=== PATIENT | male | born 1940 | race Caucasian/White ===

== ENCOUNTER 2016-07-04 17:47 | Emergency (ER) | payer MEDICARE, OTHER ==
[2016-07-04 18:28] VITALS: BP 150/94
--- NOTE | 2016-07-04 19:00 | EDM.PDOC ---
[id number] 4d ABD PAIN LEFT SIDE Time Seen by Provider: 07/04/16 18:30 Source: Reports: Patient, Family History Limitations: Reports: No limitations - History of Present Illness INITIAL COMMENTS - FREE TEXT/NARRATIVE: 76-year-old male who has had a left lower quadrant abdominal pain that has worsened over the past day. No fevers or chills. He has an ongoing problem with thrombocytopenia and has had stents placed in the femoral arteries and the left ureter over the past few years. He took some Tylenol earlier this afternoon and the pain is feeling better but he wanted it checked. No nausea or vomiting. Timing/Duration: Reports: Hour(s): (Over the past 12-24 hours) Location: LLQ Quality: Reports: cramping Severity: mild Associated Symptoms: Reports: other (Mild intermittent dysuria). Denies: chest pain - Related Data Allergies/ADRs: Allergies Allergy/AdvReac Type Severity Reaction Status Date / Time No Known Allergies Allergy Verified 07/04/16 18:17 Home Meds: Home Meds Atenolol [Tenormin] 25 mg PO DAILY 01/01/13 [History] Lisinopril [Lisinopril] 10 mg PO DAILY 01/01/13 [History] Multivitamin with Minerals [Multiple Vitamin] 1 tab PO DAILY 02/03/13 [History] Simvastatin [Simvastatin] 1 tab PO DAILY 10/15/14 [History] Hydrochlorothiazide 07/04/16 [History] Omeprazole [Omeprazole] 07/04/16 [History] Tamsulosin [Flomax] 07/04/16 [History] Past Medical History Cardiovascular History: Reports: High cholesterol, Hypertension, Other (see below) Other Cardiovascular History: aneurysm Other Genitourinary History: cyst on kidney Musculoskeletal History: Reports: Osteoarthritis Neurological History: Reports: Vertigo - Past Surgical History Cardiovascular Surgical History: Reports: AAA repair Social & Family History - Tobacco Use Smoking Status *Q: Never Smoker Years of Tobacco use: 40 Packs/Tins Daily: 0.5 Second Hand Smoke Exposure: Yes - Alcohol Use Days Per Week of Alcohol Use: 2 Number of Drinks Per Day: 4 Total Drinks Per Week: 8 - Recreational Drug Use Recreational Drug Use: No ED ROS GENERAL - Review of Systems Review Of Systems: See Below Constitutional: Denies: fever, chills, malaise HEENT: Reports: No symptoms Respiratory: Denies: Shortness of Breath Cardiovascular: Denies: Chest pain GI/Abdominal: Reports: Abdominal pain. Denies: Nausea, Vomiting : Reports: dysuria (Intermittent) Musculoskeletal: Reports: other (Some pain radiating into the left lateral hip) Skin: Reports: no symptoms Neurological: Reports: No Symptoms Psychiatric: Reports: No symptoms Hematologic/Lymphatic: Reports: other (Been followed for thrombocytopenia) ED EXAM, GI/ABD - Physical Exam Exam: See Below Exam Limited By: No limitations General Appearance: alert, no apparent distress Eyes: bilateral: normal appearance (No jaundice) Respiratory/Chest: no respiratory distress, lungs clear Cardiovascular: regular rate, rhythm GI/Abdominal: soft, tenderness (Patient reacts with tenderness to palpation over the left lower quadrant, small amount of guarding, no significant rebound) Extremities: other (No external palpation tenderness on the lateral hip but some increased pain with flexion of the hip) Course - Vital Signs Last Recorded V/S: Last Vital Signs Temp 97.7 F 07/04/16 18:27 Pulse 80 07/04/16 18:27 Resp 14 07/04/16 18:27 BP 150/94 H 07/04/16 18:27 Pulse Ox 98 07/04/16 18:27 - Orders/Labs/Meds Orders: Active Orders 24 hr Category Date Time Status Abdomen Pelvis wo Cont [CT] Stat Exams 07/04/16 18:43 Taken Labs: Laboratory Tests 07/04/16 07/04/16 07/04/16 Range/Units 18:15 18:45 18:45 WBC 7.6 (4.5-11.0) K/uL RBC 3.73 L (4.30-5.90) M/uL Hgb 9.7 L D (12.0-15.0) g/dL Hct 31.2 L (40.0-54.0) % MCV 84 (80-98) fL MCH 26 L (27-31) pg MCHC 31 L (32-36) % Plt Count 95 L (150-400) K/uL Neut % (Auto) 61 (36-66) % Lymph % (Auto) 23 L (24-44) % [place] % (Auto) 12 H (2-6) % Eos % (Auto) 5 H (2-4) % Baso % (Auto) 0 (0-1) % Sodium 142 (140-148) mmol/L Potassium 4.3 (3.6-5.2) mmol/L Chloride 107 (100-108) mmol/L Carbon Dioxide 25 (21-32) mmol/L Anion Gap 10.1 (5.0-14.0) mmol/L BUN 33 H D (7-18) mg/dL Creatinine 1.4 H (0.8-1.3) mg/dL Est Cr Clr Drug Dosing TNP Estimated GFR (MDRD) 49 L (>60) Glucose 120 H (74-106) mg/dL Calcium 8.5 (8.5-10.1) mg/dL Urine Color Yellow Urine Appearance Slightly cloudy Urine pH 5.0 (4.5-8.0) Ur Specific [place] 1.010 (1.008-1.030) Urine Protein Trace (NEGATIVE) mg/dL Urine Glucose (UA) Normal (NEGATIVE) mg/dL Urine Ketones Negative (NEGATIVE) mg/dL Urine Occult Blood Large (NEGATIVE) Urine Nitrite Negative (NEGAITVE) Urine Bilirubin Negative (NEGATIVE) Urine Urobilinogen Normal (NORMAL) mg/dL Ur Leukocyte Esterase Large (NEGATIVE) Urine RBC 40-50 H (0-5) Urine WBC 5-10 H (0-5) Ur Epithelial Cells Rare Amorphous Sediment Not seen Urine Bacteria Not seen Urine Mucus Not seen - Re-Assessments/Exams Free Text/Narrative Re-Assessment/Exam: 07/04/16 19:15 The UA, CBC and BMP were obtained. An abdominal and pelvic CT without contrast was also obtained 07/04/16 20:20 UA showed 20-50 RBCs which would be typical post ureteral stent. Platelets were 95,000, hemoglobin 9.7 which is an improvement over last level of 7.9. The abdominal and pelvic CT was positive for a source loculated mass as well as a mass just anterior to the psoas muscle and the retroperitoneal space. Possibilities or abscess or hematoma, hematoma is much are likely considering the patient's history and medical presentation. This was discussed with urology , internal medicine and the patient and his and urgent hospitalization is not necessary at this time. He needs recheck of the hemoglobin and CT scan in the next several days if stable or improving, at any time worsening he should be reassessed immediately. All copies of the lab and x-ray were given to the patient and he will go to [place] or return to the ER here in [place] if he feels his worsening. He was given 10 hydrocodone for extra pain control. Departure - Departure Time of Disposition: 20:36 Disposition: Home, Self-Care 01 Condition: good Clinical Impression: Nontraumatic psoas hematoma Abdominal pain Qualifiers: Abdominal location: left lower quadrant Qualified Code(s): R10.32 - Left lower quadrant pain Instructions: Hematoma Referrals: Brenda Groves PA [Primary Care Provider] - Forms: ED Department Discharge Care Plan Goals: Continue with your current medications, add hydrocodone for pain control if needed. Rest and avoid significant physical activity until improving. You need a recheck hemoglobin and CT scan in the next 3-5 days if not worsening, you need urgent recheck if you feel you are worsening. - My Orders Last 24 Hours: My Active Orders 07/04/16 18:43 Abdomen Pelvis wo Cont [CT] Stat - Assessment/Plan Last 24 Hours: My Active Orders 07/04/16 18:43 Abdomen Pelvis wo Cont [CT] Stat
== END 2016-07-04 20:36 | disposition home or self-care (01) ==
LOC: JP.ED 17:47
DX: M79.81 Nontraumatic hematoma of soft tissue (principal); R10.32 Left lower quadrant pain; I10 Essential (primary) hypertension; E78.00 Pure hypercholesterolemia, unspecified; Z98.890 Other specified postprocedural states; Z79.899 Other long term (current) drug therapy
CPT/HCPCS: 36415; 74176; 80048; 81001; 85025; 99283; 99284-25

== ENCOUNTER 2016-08-29 22:13 | Emergency (ER) | payer MEDICARE, OTHER ==
[2016-08-29 22:27] VITALS: BP 127/86
--- NOTE | 2016-08-29 23:26 | EDM.PDOC ---
[id number]: BLOOD IN URINE Time Seen by Provider: 08/29/16 22:50 Source of Information: Reports: Patient, RN Notes Reviewed, Significant Other ( Friend) History Limitations: Reports: No Limitations - History of Present Illness INITIAL COMMENTS - FREE TEXT/NARRATIVE: 76-year-old gentleman with left ureteral stent placed a month ago, for apparent ureteral narrowing Was seen in emergency July 04 and at that time had left lower quadrant pain, a masslike area was seen on the CT scan, however he's had soft tissue mass there previously and this apparently was resolving. Noticed blood in the urine E. today. Been very active lately and today he mowed 2 large lawn some with the lawnmower did some dancing and had 4 beers at [employer]. No flank or side pain No nausea or vomiting No fever No dysuria - Related Data Allergies Allergy/AdvReac Type Severity Reaction Status Date / Time No Known Allergies Allergy Verified 07/04/16 18:17 Home Meds: Home Meds Atenolol [Tenormin] 25 mg PO DAILY 01/01/13 [History] Lisinopril [Lisinopril] 10 mg PO DAILY 01/01/13 [History] Multivitamin with Minerals [Multiple Vitamin] 1 tab PO DAILY 02/03/13 [History] Simvastatin [Simvastatin] 1 tab PO DAILY 10/15/14 [History] Hydrochlorothiazide 25 mg PO BID 07/04/16 [History] Omeprazole [Omeprazole] 20 mg PO BID 07/04/16 [History] Tamsulosin [Flomax] 0.4 mg PO BEDTIME 07/04/16 [History] Sulfamethoxazole/Trimethoprim [Bactrim Ds Tablet] 1 each PO BID #20 tablet 08/29 [Rx] Past Medical History Cardiovascular History: Reports: High Cholesterol, Hypertension Other Cardiovascular History: aneurysm Genitourinary History: Reports: Other (See Below) Other Genitourinary History: cyst on kidney Musculoskeletal History: Reports: Osteoarthritis Neurological History: Reports: Other (See Below) Other Neuro History: had vertigo when platelets were low Hematologic History: Reports: Other (See Below) Other Hematologic History: thrombocytopenia - Infectious Disease History Infectious Disease History: Reports: None - Past Surgical History Head Surgeries/Procedures: Reports: None Cardiovascular Surgical History: Reports: Other (See Below) Other Cardiovascular Surgeries/Procedures: 2 Aneurysms repaird Male Surgical History: Reports: Other (See Below) Other Male Surgeries/Procedures: stent placed in June at [facility] Neurological Surgical History: Reports: None Musculoskeletal Surgical History: Reports: None Dermatological Surgical History: Reports: None Social & Family History - Family History Family Medical History: Noncontributory - Tobacco Use Smoking Status *Q: Former Smoker Years of Tobacco use: 50 Packs/Tins Daily: 1 Used Tobacco, but Quit: Yes Month Tobacco Last Used: may. Second Hand Smoke Exposure: No - Caffeine Use Caffeine Use: Reports: Coffee, Soda, Tea - Alcohol Use Days Per Week of Alcohol Use: 1 Number of Drinks Per Day: 3 Total Drinks Per Week: 3 Date of Last Drink: 08/29/16 Time of Last Drink: 21:00 - Recreational Drug Use Recreational Drug Use: No ED ROS GENERAL - Review of Systems Review Of Systems: ROS reveals no pertinent complaints other than HPI. Constitutional: Reports: No Symptoms GI/Abdominal: Denies: Abdominal Pain, Diarrhea, Decreased Appetite, Nausea, Vomiting : Reports: Hematuria. Denies: Dysuria, Flank Pain, Frequency ED EXAM, RENAL/ - Physical Exam Exam: See Below Exam Limited By: No Limitations General Appearance: Alert, No Apparent Distress, Other (Healthy-appearing male with normal vital signs and in no distress) Respiratory/Chest: No Respiratory Distress, No Accessory Muscle Use Cardiovascular: Normal Peripheral Pulses, Regular Rate, Rhythm GI/Abdominal: Normal Bowel Sounds, Soft, Non-Tender, No Organomegaly, No Distention, No Mass (Male) Exam: No Hernia, Normal Inspection Neurological: Alert, Oriented, Normal Cognition, No Motor/Sensory Deficits Lymphatic: No Adenopathy Course - Vital Signs Text/Narrative:: 76-year-old gentleman with ureteral stent, presenting with hematuria No abdominal pain no fever no dysuria Urinalysis shows 30-40 red cells and 10-20 white cells per high-power field, no bacteria seen Urine culture ordered Ilana SALAS twice a day for 10 days Followup with urology, call the office tomorrow Get rechecked promptly if fever, vomiting or severe pain Last Recorded V/S: Last Vital Signs Temp 35.9 C 08/29/16 22:26 Pulse 74 08/29/16 22:26 Resp 16 08/29/16 22:26 BP 127/86 08/29/16 22:26 Pulse Ox 98 08/29/16 22:26 - Orders/Labs/Meds Orders: Active Orders 24 hr Category Date Time Status CULTURE URINE [RM] Stat Lab 08/29/16 23:28 Received Labs: Laboratory Tests 08/29/16 Range/Units 22:58 Urine Color Red Urine Appearance Slightly cloudy Urine pH 6.0 (4.5-8.0) Ur Specific [place] 1.010 (1.008-1.030) Urine Protein 500 H (NEGATIVE) mg/dL Urine Glucose (UA) Normal (NEGATIVE) mg/dL Urine Ketones Negative (NEGATIVE) mg/dL Urine Occult Blood Large (NEGATIVE) Urine Nitrite Negative (NEGAITVE) Urine Bilirubin Negative (NEGATIVE) Urine Urobilinogen Normal (NORMAL) mg/dL Ur Leukocyte Esterase Negative (NEGATIVE) Urine RBC 30-40 H (0-5) Urine WBC 10-20 H (0-5) Ur Epithelial Cells Not seen Amorphous Sediment Not seen Urine Bacteria Not seen Urine Mucus Not seen - Re-Assessments/Exams Free Text/Narrative Re-Assessment/Exam: 08/29/16 23:40 36-year-old male with hematuria, known left ureteral stent, no symptoms. Urinalysis does show significant pyuria and hematuria but no bacteria Urine culture pending Because of significant pyuria and presence of stents, will recommend antibiotic Followup with urology Departure - Departure Time of Disposition: 23:24 Disposition: Home, Self-Care 01 Condition: good Clinical Impression: Hematuria, History of ureter stent - Discharge Information Prescriptions: Sulfamethoxazole/Trimethoprim [Bactrim Ds Tablet] 1 each PO BID #20 tablet Instructions: Hematuria, Adult Referrals: Brenda Groves PA [Primary Care Provider] - Forms: ED Department Discharge Additional Instructions: You're being treated for possible urinary tract infection Call your urologist tomorrow to set up an appointment for next week Return to emergency if you have severe pain, repeated vomiting, high fever, weakness or fainting, or painful urination - My Orders Last 24 Hours: My Active Orders 08/29/16 23:28 CULTURE URINE [RM] Stat - Assessment/Plan Last 24 Hours: My Active Orders 08/29/16 23:28 CULTURE URINE [RM] Stat
== END 2016-08-29 23:41 | disposition home or self-care (01) ==
LOC: JP.ED 22:13
DX: R31.9 Hematuria, unspecified (principal); I10 Essential (primary) hypertension; M19.90 Unspecified osteoarthritis, unspecified site; E78.00 Pure hypercholesterolemia, unspecified; Z79.899 Other long term (current) drug therapy; Z87.891 Personal history of nicotine dependence
CPT/HCPCS: 81001; 87086; 99283; 99284

== ENCOUNTER 2017-02-18 09:09 | Day surgery (SDC) | payer MEDICARE, OTHER ==
[~2017-02-18 09:09] MED LIST: Bupivacaine 0.5% 50 ML MDV ONE; Lidocaine 1% with EPINEPHrine 1:100,000 50 ML MDV ONE
[2017-02-18] MEDS ORDERED: Propofol 200 MG/20 ML SDV ONE ×2 (09:27→10:35)
[2017-02-18] MEDS ORDERED: fentaNYL 100 MCG/2 ML SDV ONE (09:27)
[2017-02-18] MEDS ORDERED: Dextrose 5%-Lactated Ringers 1,000 ML IV SCH (10:00)
[2017-02-18] MEDS ORDERED: ceFAZolin 2 GM in Premix Bag 1 BAG IV ONE (10:45)
[2017-02-18] MEDS ORDERED: ceFAZolin 2 GM in Sodium Chloride 0.9% 50 ML IV ONE (10:45)
[2017-02-18] MEDS ORDERED: Lactated Ringers 1,000 ML ONE (11:46)
[2017-02-18 13:41] VITALS: BP 170/73
--- NOTE | 2017-02-19 08:47 | OR ---
DATE OF PROCEDURE: 02/18/2017 PREOPERATIVE DIAGNOSIS: Reducible left inguinal hernia. POSTOPERATIVE DIAGNOSIS: Reducible indirect left inguinal hernia. PROCEDURE: Repair of reducible indirect left inguinal hernia with a large PerFix mesh plug and patch. SURGEON: Jacoby Bishop MD. ANESTHESIA: IV anesthesia with monitored anesthesia care. INDICATION: This 77-year-old white male was referred for treatment of a reducible left inguinal hernia. He denies predisposing factors for hernia formation, other than being fairly physical. He does lot of wood splitting. I counseled him for repair of his reducible left inguinal hernia with a mesh plug and patch, including risks and alternatives, and he gave us informed consent to proceed. DESCRIPTION OF PROCEDURE: The patient was placed supine on the operating room table. IV anesthesia was administered by the Anesthesia Service. His lower abdomen, groin, and genitalia were prepped and draped in the usual sterile fashion. Time -out was held. Lidocaine 1% with epinephrine in a 50:50 mix with 0.5% Marcaine was infiltrated about the left groin. A left groin incision was made 2 cm superior and medial to the inguinal ligament. This was carried deep using Bovie cautery to the external oblique. The external oblique was opened parallel to the course of its fibers from the internal to the external ring. The spermatic cord was mobilized, and a Carroll drain placed above it. The floor appeared to be intact. The cremasteric fibers were longitudinally to reveal an indirect hernia sac. The ilioinguinal nerve was divided. The indirect sac was then dissected free back to the peritoneal reflection and reduced back into the abdominal cavity. The fascial defect was measured to about a large plug. A large PerFix mesh plug and patch manufactured by [employer] was obtained. The plug was passed down through the defect underneath the fascia and anchored to the underside of the fascia, approximating the internal leaves to the associated fascia with horizontal mattress stitches of 2-0 Vicryl. The onlay patch was cut to appropriate length and placed over the inguinal floor , and it was anchored to itself around the spermatic cord with 2-0 Vicryl suture. It appeared to lie in there quite nicely. The external oblique was closed with a running stitch of 3- 0 Vicryl. Interrupted 3-0 Vicryl stitches were placed to approximate the Blayne's fascia. 4-0 Vicryl using a subcuticular stitch was placed to approximate the skin. Dermabond was applied. The patient tolerated the procedure well and was brought to recovery room in good condition. Jacoby Bishop MD /[id number] MTDD
== END 2017-02-18 13:30 | disposition home or self-care (01) ==
LOC: JP.SDS 09:09
PROVIDERS: ATTEND Surgery
DX: K40.90 Unilateral inguinal hernia, without obstruction or gangrene, not specified as recurrent (principal); I12.9 Hypertensive chronic kidney disease with stage 1 through stage 4 chronic kidney disease, or unspecified chronic kidney disease; N18.9 Chronic kidney disease, unspecified; F17.210 Nicotine dependence, cigarettes, uncomplicated
CPT/HCPCS: 36415; 49505; 85027; J0690; J2704; J3010; J7042; J7050; J7120; C1781

== ENCOUNTER 2018-10-21 09:00 | Emergency (ER) | payer MEDICARE, BC ==
--- NOTE | 2018-10-21 10:07 | EDM.PDOC ---
ED HPI GENERAL MEDICAL PROBLEM - General Chief Complaint: Gastrointestinal Problem Stated Complaint: SURGERY COMPLICATIONS Time Seen by Provider: 10/21/18 09:45 Source of Information: Reports: Patient, Family, Old Records, RN History Limitations: Reports: No Limitations - History of Present Illness INITIAL COMMENTS - FREE TEXT/NARRATIVE: 78 yo male here with anorexia and at least 5 lb weight loss over the past couple of weeks. Feels gaggy when he tries to eat. No change in bowels. No fever , SOB, or chest pains. Has nocturia x one. Sleeping OK. Had surgery at [facility] with discharge about 2 weeks ago for infected mesh in his ilac artery stents placed in ' originally period. 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 Was seen in the clinic once since his hospital discharge and they just wanted him to report back if he didn't improve. Yesterday when he told the clinic he was not improving he was told to come to the ER. - Related Data Allergies Allergy/AdvReac Type Severity Reaction Status Date / Time No Known Allergies Allergy Verified 10/21/18 09:26 Home Meds: Home Meds Atenolol [Tenormin] 25 mg PO DAILY 01/01/13 [History] Lisinopril 10 mg PO DAILY 01/01/13 [History] Multivitamin with Minerals [Multiple Vitamin] 1 tab PO DAILY 02/03/13 [History] Omeprazole 20 mg PO BID 07/04/16 [History] Tamsulosin [Flomax] 0.4 mg PO BEDTIME 07/04/16 [History] Ascorbic Acid [Vitamin C] 500 mg PO DAILY 02/14/17 [History] Aspirin [Ecotrin EC] 325 mg PO DAILY 10/21/18 [History] Cholecalciferol (Vitamin D3) [Vitamin D3] 1,000 unit PO DAILY 10/21/18 [History] Doxycycline [Vibramycin] 100 mg PO BID 10/21/18 [History] Hydroxychloroquine [Plaquenil] 200 mg PO TID 10/21/18 [History] Sennosides [Senna] 8.6 mg PO DAILY 10/21/18 [History] oxyCODONE HCl [Roxicodone] 5 mg PO Q4HR PRN 10/21/18 [History] Past Medical History HEENT History: Reports: Impaired Vision Cardiovascular History: Reports: High Cholesterol, Hypertension Other Cardiovascular History: aneurysm femoral Respiratory History: Reports: None Gastrointestinal History: Reports: Colon Polyp, GERD Genitourinary History: Reports: Other (See Below) Other Genitourinary History: cyst on kidney Musculoskeletal History: Reports: Arthritis, Fracture, Osteoarthritis Neurological History: Reports: Other (See Below) Other Neuro History: had vertigo when platelets were low Psychiatric History: Reports: None Endocrine/Metabolic History: Reports: None Hematologic History: Reports: Anemia, Other (See Below) Other Hematologic History: thrombocytopenia Immunologic History: Reports: None Oncologic (Cancer) History: Reports: None Dermatologic History: Reports: None - Infectious Disease History Infectious Disease History: Reports: Chicken Pox, Herpes, Measles, Mumps - Past Surgical History Head Surgeries/Procedures: Reports: None HEENT Surgical History: Reports: None Cardiovascular Surgical History: Reports: Other (See Below) Other Cardiovascular Surgeries/Procedures: 2 Aneurysms repaird 2009 Respiratory Surgical History: Reports: None GI Surgical History: Reports: Colonoscopy, EGD, Polypectomy Male Surgical History: Reports: Other (See Below) Other Male Surgeries/Procedures: stent placed in June at [facility] 2016 Endocrine Surgical History: Reports: None Neurological Surgical History: Reports: None Musculoskeletal Surgical History: Reports: Carpal Tunnel Oncologic Surgical History: Reports: None Dermatological Surgical History: Reports: None Social & Family History - Family History Family Medical History: Noncontributory - Tobacco Use Smoking Status *Q: Former Smoker Used Tobacco, but Quit: Yes Month/Year Tobacco Last Used: quit 5 months ago - Caffeine Use Caffeine Use: Reports: Coffee - Recreational Drug Use Recreational Drug Use: No ED ROS GENERAL - Review of Systems Review Of Systems: See Below Constitutional: Reports: Malaise HEENT: Reports: No Symptoms Respiratory: Reports: No Symptoms Cardiovascular: Reports: No Symptoms Endocrine: Reports: No Symptoms GI/Abdominal: Reports: Anorexia, Decreased Appetite. Denies: Abdominal Pain, Black Stool, Bloody Stool, Constipation, Diarrhea, Distension, Hematemesis, Hematochezia, Melena, Nausea, Vomiting : Reports: No Symptoms Musculoskeletal: Reports: No Symptoms Skin: Reports: No Symptoms Neurological: Reports: No Symptoms Psychiatric: Reports: No Symptoms ED EXAM, GI/ABD - Physical Exam Exam: See Below Exam Limited By: No Limitations General Appearance: Alert, WD/WN, No Apparent Distress, Thin Eyes: Bilateral: Normal Appearance, EOMI Ears: Normal External Exam, Hearing Grossly Normal Nose: Normal Inspection, No Blood Throat/Mouth: Normal Inspection, Normal Lips, Normal Oropharynx, Normal Voice, No Airway Compromise Head: Atraumatic, Normocephalic Neck: Normal Inspection Respiratory/Chest: No Respiratory Distress, Lungs Clear, Normal Breath Sounds, No Accessory Muscle Use Cardiovascular: Regular Rate, Rhythm, No Edema GI/Abdominal Exam: Normal Bowel Sounds, Soft, Non-Tender, No Distention, Other ( Large healing midline surgical wound, no redness) Back Exam: Normal Inspection. No: CVA Tenderness (R), CVA Tenderness (L) Extremities: Normal Inspection, Normal Range of Motion, Non-Tender, No Pedal Edema Neurological: Alert, Oriented, CN II-XII Intact, Normal Cognition, No Motor/ Sensory Deficits Psychiatric: Normal Affect, Normal Mood Skin Exam: Warm, Dry, Intact, Normal Color, No Rash Course - Vital Signs Last Recorded V/S: Last Vital Signs Temp 36.1 C 10/21/18 09:22 Pulse 74 10/21/18 10:44 Resp 20 10/21/18 09:22 BP 135/87 10/21/18 10:44 Pulse Ox 88 L 10/21/18 10:44 - Orders/Labs/Meds Labs: Laboratory Tests 10/21/18 10/21/18 10/21/18 Range/Units 10:07 10:08 10:08 WBC 10.4 (4.5-11.0) K/uL RBC 4.65 (4.30-5.90) M/uL Hgb 13.2 (12.0-15.0) g/dL Hct 41.6 (40.0-54.0) % MCV 90 (80-98) fL MCH 28 (27-31) pg MCHC 32 (32-36) % Plt Count 315 (150-400) K/uL Sodium 137 L (140-148) mmol/L Potassium 4.7 (3.6-5.2) mmol/L Chloride 102 (100-108) mmol/L Carbon Dioxide 26 (21-32) mmol/L Anion Gap 13.7 (5.0-14.0) mmol/L BUN 43 H (7-18) mg/dL Creatinine 1.7 H (0.8-1.3) mg/dL Est Cr Clr Drug Dosing 29.58 mL/min Estimated GFR (MDRD) 39 L (>60) Glucose 125 H (74-106) mg/dL Calcium 9.4 (8.5-10.1) mg/dL Total Bilirubin 0.5 D (0.2-1.0) mg/dL AST 32 D (15-37) U/L ALT 40 D (12-78) U/L Alkaline Phosphatase 122 H D (46-116) U/L Troponin I < 0.017 (0.000-0.056) ng/mL C-Reactive Protein 1.02 H (0.0-0.3) mg/dL Total Protein 7.2 (6.4-8.2) g/dL Albumin 3.3 L (3.4-5.0) g/dL Globulin 3.9 H (2.3-3.5) g/dL Albumin/Globulin Ratio 0.9 L (1.2-2.2) TSH, Ultra Sensitive 2.431 (0.358-3.740) uIU/mL Urine Color Urine Appearance Urine pH (4.5-8.0) Ur Specific [place] (1.008-1.030) Urine Protein (NEGATIVE) mg/dL Urine Glucose (UA) (NEGATIVE) mg/dL Urine Ketones (NEGATIVE) mg/dL Urine Occult Blood (NEGATIVE) Urine Nitrite (NEGAITVE) Urine Bilirubin (NEGATIVE) Urine Urobilinogen (NORMAL) mg/dL Ur Leukocyte Esterase (NEGATIVE) Urine RBC (0-5) Urine WBC (0-5) Ur Epithelial Cells Amorphous Sediment Urine Bacteria Urine Mucus 10/21/18 Range/Units 11:16 WBC (4.5-11.0) K/uL RBC (4.30-5.90) M/uL Hgb (12.0-15.0) g/dL Hct (40.0-54.0) % MCV (80-98) fL MCH (27-31) pg MCHC (32-36) % Plt Count (150-400) K/uL Sodium (140-148) mmol/L Potassium (3.6-5.2) mmol/L Chloride (100-108) mmol/L Carbon Dioxide (21-32) mmol/L Anion Gap (5.0-14.0) mmol/L BUN (7-18) mg/dL Creatinine (0.8-1.3) mg/dL Est Cr Clr Drug Dosing mL/min Estimated GFR (MDRD) (>60) Glucose (74-106) mg/dL Calcium (8.5-10.1) mg/dL Total Bilirubin (0.2-1.0) mg/dL AST (15-37) U/L ALT (12-78) U/L Alkaline Phosphatase (46-116) U/L Troponin I (0.000-0.056) ng/mL C-Reactive Protein (0.0-0.3) mg/dL Total Protein (6.4-8.2) g/dL Albumin (3.4-5.0) g/dL Globulin (2.3-3.5) g/dL Albumin/Globulin Ratio (1.2-2.2) TSH, Ultra Sensitive (0.358-3.740) uIU/mL Urine Color Yellow Urine Appearance Slightly cloudy Urine pH 5.0 (4.5-8.0) Ur Specific [place] 1.025 (1.008-1.030) Urine Protein 100 H (NEGATIVE) mg/dL Urine Glucose (UA) Normal (NEGATIVE) mg/dL Urine Ketones Negative (NEGATIVE) mg/dL Urine Occult Blood Large (NEGATIVE) Urine Nitrite Negative (NEGAITVE) Urine Bilirubin Negative (NEGATIVE) Urine Urobilinogen Normal (NORMAL) mg/dL Ur Leukocyte Esterase Large (NEGATIVE) Urine RBC 5-10 H (0-5) Urine WBC 5-10 H (0-5) Ur Epithelial Cells Not seen Amorphous Sediment Moderate Urine Bacteria Not seen Urine Mucus Moderate Meds: Medications Discontinued Medications Generic Name Dose Route Start Last Admin Trade Name Freq PRN Reason Stop Dose Admin Sodium Chloride 1,000 mls @ 1,000 mls/hr 10/21/18 11:08 10/21/18 11:36 Normal Saline IV 10/21/18 12:07 1,000 mls/hr .BOLUS ONE Administration Departure - Departure Time of Disposition: 12:30 Disposition: Home, Self-Care 01 Condition: Fair Clinical Impression: Mild dehydration, Anorexia - Discharge Information *PRESCRIPTION DRUG MONITORING PROGRAM REVIEWED*: No *COPY OF PRESCRIPTION DRUG MONITORING REPORT IN PATIENT ELLIS: No Instructions: Dehydration, Adult, [id number] Referrals: Brenda Groves PA [Primary Care Provider] - Forms: ED Department Discharge Additional Instructions: Continue current medications. F/U at [facility] as able. Return if worse.
[2018-10-21] MEDS ORDERED: Sodium Chloride 0.9% 1,000 ML IV ONE (11:08)
[2018-10-21 11:42] VITALS: BP 135/87; PULSE 74
== END 2018-10-21 12:54 | disposition home or self-care (01) ==
LOC: JP.ED 09:00
DX: R63.0 Anorexia (principal); E86.0 Dehydration; E78.00 Pure hypercholesterolemia, unspecified; I10 Essential (primary) hypertension; K21.9 Gastro-esophageal reflux disease without esophagitis; Z87.891 Personal history of nicotine dependence; Z79.899 Other long term (current) drug therapy; Z79.82 Long term (current) use of aspirin
CPT/HCPCS: 36415; 80053; 81001; 84443; 84484; 85027; 86140; 96360; 99284; J7030; 99283

== ENCOUNTER 2019-10-10 08:19 | Emergency (ER) | payer MEDICARE, BC ==
--- NOTE | 2019-10-10 09:00 | EDM.PDOC ---
ED HPI GENERAL MEDICAL PROBLEM - General Chief Complaint: Gastrointestinal Problem Stated Complaint: CONSTIPATION Time Seen by Provider: 10/10/19 08:53 Source of Information: Reports: Patient, Family, RN Notes Reviewed History Limitations: Reports: No Limitations - History of Present Illness INITIAL COMMENTS - FREE TEXT/NARRATIVE: 79-year-old gentleman presents emergency department today with complaint of constipation he states he has tried MiraLAX at home with little effect, no fevers no nausea vomiting - Related Data Allergies Allergy/AdvReac Type Severity Reaction Status Date / Time No Known Allergies Allergy Verified 10/10/19 08:34 Home Meds: Home Meds Lisinopril 10 mg PO DAILY 01/01/13 [History] atenoloL [Tenormin] 25 mg PO DAILY 01/01/13 [History] Multivitamin with Minerals [Multiple Vitamin] 1 tab PO DAILY 02/03/13 [History] Omeprazole 20 mg PO BID 07/04/16 [History] Tamsulosin [Flomax] 0.4 mg PO BEDTIME 07/04/16 [History] Ascorbic Acid [Vitamin C] 500 mg PO DAILY 02/14/17 [History] Aspirin [Ecotrin EC] 325 mg PO DAILY 10/21/18 [History] Cholecalciferol (Vitamin D3) [Vitamin D3] 1,000 unit PO DAILY 10/21/18 [History] Doxycycline [Vibramycin] 100 mg PO BID 10/21/18 [History] Hydroxychloroquine [Plaquenil] 200 mg PO TID 10/21/18 [History] oxyCODONE HCl [Roxicodone] 5 mg PO Q4HR PRN 10/21/18 [History] Docusate Sodium [Colace Clear] 50 mg PO BID 10/10/19 [History] Past Medical History HEENT History: Reports: Impaired Vision Cardiovascular History: Reports: High Cholesterol, Hypertension Other Cardiovascular History: aneurysm femoral Gastrointestinal History: Reports: Colon Polyp, GERD Genitourinary History: Reports: Other (See Below) Other Genitourinary History: cyst on kidney Musculoskeletal History: Reports: Arthritis, Fracture, Osteoarthritis Neurological History: Reports: Other (See Below) Other Neuro History: had vertigo when platelets were low Hematologic History: Reports: Anemia, Other (See Below) Other Hematologic History: thrombocytopenia - Infectious Disease History Infectious Disease History: Reports: Chicken Pox, Herpes, Measles, Mumps - Past Surgical History Head Surgeries/Procedures: Reports: None HEENT Surgical History: Reports: None Cardiovascular Surgical History: Reports: Other (See Below) Other Cardiovascular Surgeries/Procedures: 2 Aneurysms repaird 2009 Respiratory Surgical History: Reports: None GI Surgical History: Reports: Colonoscopy, EGD, Polypectomy Male Surgical History: Reports: Other (See Below) Other Male Surgeries/Procedures: stent placed in June at [facility] 2017 Endocrine Surgical History: Reports: None Neurological Surgical History: Reports: None Musculoskeletal Surgical History: Reports: Carpal Tunnel Oncologic Surgical History: Reports: None Dermatological Surgical History: Reports: None Social & Family History - Family History Family Medical History: Noncontributory - Tobacco Use Smoking Status *Q: Current Every Day Smoker Years of Tobacco use: 60 Packs/Tins Daily: 0.5 - Caffeine Use Caffeine Use: Reports: Coffee - Recreational Drug Use Recreational Drug Use: No ED ROS GENERAL - Review of Systems Review Of Systems: See Below Constitutional: Reports: No Symptoms GI/Abdominal: Reports: Abdominal Pain, Constipation. Denies: Nausea, Vomiting ED EXAM, GI/ABD - Physical Exam Exam: See Below Exam Limited By: No Limitations General Appearance: Alert, WD/WN, No Apparent Distress Respiratory/Chest: No Respiratory Distress GI/Abdominal Exam: Soft, Non-Tender Course - Vital Signs Last Recorded V/S: Last Vital Signs Temp 98.6 F 10/10/19 08:38 Pulse 86 10/10/19 08:38 Resp 12 10/10/19 08:38 BP 126/80 10/10/19 08:38 Pulse Ox 99 10/10/19 08:38 - Orders/Labs/Meds Orders: Active Orders 24 hr Category Date Time Status Enema [RC] ASDIRECTED Care 10/10/19 09:38 Active Abdomen 1V Upright [CR] Stat Exams 10/10/19 08:58 Taken Departure - Departure Time of Disposition: 11:05 Disposition: Home, Self-Care 01 Condition: Fair Clinical Impression: Functional constipation - Discharge Information Instructions: Constipation, Adult, [id number] Referrals: Brenda Groves PA [Primary Care Provider] - Forms: ED Department Discharge Additional Instructions: Recommend using MiraLAX 1 capful per day, please followup with your primary care provider in 3-5 days if not better, please call return to the emergency department with worsening of symptoms. Sepsis Event Note (ED) - Evaluation Sepsis Screening Result: No Definite Risk - Focused Exam Vital Signs: Vital Signs Temp Pulse Resp BP Pulse Ox 10/10/19 08:38 98.6 F 86 12 126/80 99 - My Orders Last 24 Hours: My Active Orders 10/10/19 08:58 Abdomen 1V Upright [CR] Stat 10/10/19 09:38 Enema [RC] ASDIRECTED - Assessment/Plan Last 24 Hours: My Active Orders 10/10/19 08:58 Abdomen 1V Upright [CR] Stat 10/10/19 09:38 Enema [RC] ASDIRECTED Plan: Assessment Acuity = acute Site and laterality = constipation functional Etiology = slow transit time Manifestations = none Location of injury = Home Lab values = plain film of the abdomen does show moderate amount of stool and gas Plan He had good relief with enema provided in the ED he is can use 1 capful of MiraLAX per day follow-up primary care 3 to 5 days if not better This note was dictated using [employer] voice recognition software please call with any questions on syntax or grammar.
[2019-10-10 11:08] VITALS: BP 146/80; PULSE 74
--- NOTE | 2019-10-13 09:23 | CR ---
Abdomen 1V Upright CLINICAL HISTORY: Abdominal pain, constipation FINDINGS: No free air is identified. There are scattered air-filled loops of small bowel in a nonacute pattern. There is gas and feces throughout the colon with a moderate amount of fecal retention. Patient has a double-J ureteral stent on the left. There is an aorto iliac stent graft in place. IMPRESSION: Nonacute intestinal gas pattern Moderate fecal retention
== END 2019-10-10 11:17 | disposition home or self-care (01) ==
LOC: JP.ED 08:19
DX: K59.04 Chronic idiopathic constipation (principal); F17.210 Nicotine dependence, cigarettes, uncomplicated; I10 Essential (primary) hypertension; K21.9 Gastro-esophageal reflux disease without esophagitis; M19.90 Unspecified osteoarthritis, unspecified site; Z79.82 Long term (current) use of aspirin; Z79.899 Other long term (current) drug therapy
CPT/HCPCS: 74018; 74018-26; 99283-25

== ENCOUNTER 2019-10-13 17:22 | Emergency (ER) | payer MEDICARE, BC ==
[2019-10-13 18:07] VITALS: BP 121/74; PULSE 65
--- NOTE | 2019-10-13 18:08 | EDM.PDOC ---
ED HPI GENERAL MEDICAL PROBLEM - General Chief Complaint: Gastrointestinal Problem Stated Complaint: BOWEL ISSUES Time Seen by Provider: 10/13/19 18:08 Source of Information: Reports: Patient History Limitations: Reports: No Limitations - History of Present Illness INITIAL COMMENTS - FREE TEXT/NARRATIVE: 79 years old male patient presented to the ER with a chief complaint of co nstipation. He stated last bowel movement last Saturday after an enema. Denies any nausea or vomiting. Denies abdominal pain or cramping. Denies any chest pain or shortness breath. Denies any cough or fever. Denies any diarrhea. Denies any urinary symptom. Has been taking MiraLAX that does not seem to be helping. Requesting another enema - Related Data Allergies Allergy/AdvReac Type Severity Reaction Status Date / Time No Known Allergies Allergy Verified 10/10/19 08:34 Home Meds: Home Meds Lisinopril 10 mg PO DAILY 01/01/13 [History] atenoloL [Tenormin] 25 mg PO DAILY 01/01/13 [History] Multivitamin with Minerals [Multiple Vitamin] 1 tab PO DAILY 02/03/13 [History] Omeprazole 20 mg PO BID 07/04/16 [History] Aspirin [Ecotrin EC] 325 mg PO DAILY 10/21/18 [History] Doxycycline [Vibramycin] 100 mg PO BID 10/21/18 [History] Hydroxychloroquine [Plaquenil] 200 mg PO TID 10/21/18 [History] polyethylene glycoL 3350 [MiraLAX] 17 gm PO DAILY 10/13/19 [History] Past Medical History HEENT History: Reports: Impaired Vision Cardiovascular History: Reports: High Cholesterol, Hypertension Other Cardiovascular History: aneurysm femoral Respiratory History: Reports: None Gastrointestinal History: Reports: Colon Polyp, GERD Genitourinary History: Reports: Other (See Below) Other Genitourinary History: cyst on kidney Musculoskeletal History: Reports: Arthritis, Fracture, Osteoarthritis Neurological History: Reports: Other (See Below) Other Neuro History: had vertigo when platelets were low Psychiatric History: Reports: None Endocrine/Metabolic History: Reports: None Hematologic History: Reports: Anemia, Other (See Below) Other Hematologic History: thrombocytopenia Immunologic History: Reports: None Oncologic (Cancer) History: Reports: None Dermatologic History: Reports: None - Infectious Disease History Infectious Disease History: Reports: Chicken Pox, Herpes, Measles, Mumps - Past Surgical History Head Surgeries/Procedures: Reports: None HEENT Surgical History: Reports: None Cardiovascular Surgical History: Reports: Other (See Below) Other Cardiovascular Surgeries/Procedures: 2 Aneurysms repaird 2009 Respiratory Surgical History: Reports: None GI Surgical History: Reports: Colonoscopy, EGD, Polypectomy Male Surgical History: Reports: Other (See Below) Other Male Surgeries/Procedures: stent placed in June at [facility] 2017 Endocrine Surgical History: Reports: None Neurological Surgical History: Reports: None Musculoskeletal Surgical History: Reports: Carpal Tunnel Oncologic Surgical History: Reports: None Social & Family History - Family History Family Medical History: Noncontributory - Tobacco Use Smoking Status *Q: Current Every Day Smoker Years of Tobacco use: 60 Packs/Tins Daily: 0.4 - Caffeine Use Caffeine Use: Reports: Coffee - Recreational Drug Use Recreational Drug Use: No ED ROS GENERAL - Review of Systems Review Of Systems: Comprehensive ROS is negative, except as noted in HPI. ED EXAM, GI/ABD - Physical Exam Exam: See Below Exam Limited By: No Limitations General Appearance: Alert, WD/WN, No Apparent Distress Head: Atraumatic, Normocephalic Neck: Normal Inspection, Supple, Non-Tender, Full Range of Motion Respiratory/Chest: No Respiratory Distress, Lungs Clear, Normal Breath Sounds, No Accessory Muscle Use, Chest Non-Tender Cardiovascular: Normal Peripheral Pulses, Regular Rate, Rhythm, No Edema, No Gallop, No JVD, No Murmur, No Rub GI/Abdominal Exam: Normal Bowel Sounds, Soft, Non-Tender, No Organomegaly, No Distention, No Abnormal Bruit, No Mass, Pelvis Stable Neurological: Alert, Oriented, CN II-XII Intact, Normal Cognition, Normal Gait, Normal Reflexes, No Motor/Sensory Deficits Course - Vital Signs Last Recorded V/S: Last Vital Signs Temp 36.4 C 10/13/19 18:06 Pulse 65 10/13/19 18:06 Resp 14 10/13/19 18:06 BP 121/74 10/13/19 18:06 Pulse Ox 99 10/13/19 18:06 - Orders/Labs/Meds Orders: Active Orders 24 hr Category Date Time Status Enema [RC] ASDIRECTED Care 10/13/19 18:24 Active - Re-Assessments/Exams Free Text/Narrative Re-Assessment/Exam: 10/13/19 19:11 Patient was seen and examined shortly after arrival. The stable. Given an enema. Good result. She feels much better. Requesting to be discharged home. Advised to rest and stay hydrated. Eat more fiber. Close follow-up with PCP. Come back for any concern or any worsening symptom. Patient agrees with the plan. Stable for discharge. Departure - Departure Time of Disposition: 19:12 Disposition: Home, Self-Care 01 Condition: Good Clinical Impression: Constipation, Constipation - Discharge Information *PRESCRIPTION DRUG MONITORING PROGRAM REVIEWED*: Not Applicable *COPY OF PRESCRIPTION DRUG MONITORING REPORT IN PATIENT ELLIS: Not Applicable Instructions: Chronic Constipation Referrals: Brenda Groves PA [Primary Care Provider] - Forms: ED Department Discharge Additional Instructions: Advised to rest and stay hydrated. Eat more fiber. Close follow-up with PCP. Come back for any concern or any worsening symptom. Patient agrees with the plan. Sepsis Event Note (ED) - Evaluation Sepsis Screening Result: No Definite Risk - Focused Exam Vital Signs: Vital Signs Temp Pulse Resp BP Pulse Ox 10/13/19 18:06 36.4 C 65 14 121/74 99 - My Orders Last 24 Hours: My Active Orders 10/13/19 18:24 Enema [RC] ASDIRECTED - Assessment/Plan Last 24 Hours: My Active Orders 10/13/19 18:24 Enema [RC] ASDIRECTED Plan: Advised to rest and stay hydrated. Eat more fiber. Close follow-up with PCP. Come back for any concern or any worsening symptom. Patient agrees with the plan.
== END 2019-10-13 19:33 | disposition home or self-care (01) ==
LOC: JP.ED 17:22
DX: K59.00 Constipation, unspecified (principal); I10 Essential (primary) hypertension; K21.9 Gastro-esophageal reflux disease without esophagitis; M19.90 Unspecified osteoarthritis, unspecified site; F17.210 Nicotine dependence, cigarettes, uncomplicated; Z79.82 Long term (current) use of aspirin; Z79.899 Other long term (current) drug therapy
CPT/HCPCS: 99282; 99283

== ENCOUNTER 2019-10-19 08:38 | Day surgery (SDC) | payer MEDICARE, BC ==
[2019-10-19] MEDS ORDERED: fentaNYL 100 MCG/2 ML SDV ONE (08:45)
[2019-10-19] MEDS ORDERED: Propofol 200 MG/20 ML SDV ONE (08:45)
[2019-10-19] MEDS ORDERED: Sodium Chloride 0.9% 1,000 ML IV SCH (09:45)
[2019-10-19 11:15] VITALS: BP 148/85; PULSE 54
--- NOTE | 2019-10-19 13:47 | OR ---
DATE OF PROCEDURE: 10/19/2019 SURGEON: Fernando Hartmann MD PROCEDURE: Colonoscopy. FINDINGS: 1. Retained stool without etiology. 2. Diverticulosis, moderate, without evidence of diverticulitis. 3. Descending colon polyp, approximately 8 mm, completely removed using hot snare wire device. COMPLICATION: None. PLATE DRILLER: None. ANESTHESIA: MAC. PREOPERATIVE DIAGNOSIS: Constipation. POSTOPERATIVE DIAGNOSIS: Constipation. RISKS: Risks, benefits, alternatives, and limitations including, but not limited to infection, bleeding, and perforation were explained to the patient, who wished to proceed. PROCEDURE IN DETAIL: The patient was placed in a left lateral decubitus position. Digital rectal exam was performed without abnormality. Scope was introduced and advanced atraumatically to the ileocecal valve. The patient was noted to have stool remaining in the ascending colon. Suction and irrigation techniques were used to remove as much as possible. No masses, narrowing, or stricturing was noted. The scope was brought back through the remaining of the colon. In the descending colon, the polyp was identified and completely removed as described above. No abnormalities on retroflexion. The diverticulosis would be described as moderate, limited mostly to sigmoid colon, without evidence of diverticulitis. The patient tolerated the procedure well. Fernando Hartmann MD /[id number]
== END 2019-10-19 11:20 | disposition home or self-care (01) ==
LOC: JP.SDS 08:38
PROVIDERS: ATTEND Surgery
DX: D12.4 Benign neoplasm of descending colon (principal); K57.30 Diverticulosis of large intestine without perforation or abscess without bleeding; K59.00 Constipation, unspecified; I12.9 Hypertensive chronic kidney disease with stage 1 through stage 4 chronic kidney disease, or unspecified chronic kidney disease; E78.5 Hyperlipidemia, unspecified; I73.9 Peripheral vascular disease, unspecified; N18.3 Chronic kidney disease, stage 3 (moderate); I65.29 Occlusion and stenosis of unspecified carotid artery
CPT/HCPCS: 45385; J2704; J3010; J7030; 88305